=== PATIENT | male | born 1995 | race Caucasian/White ===

== ENCOUNTER 2017-07-24 08:27 | Emergency (ER) | payer OTHER ==
[2017-07-24 08:45] LABS: EOSINOPHIL (%) 1.4 % (0-5); EOSINOPHIL COUNT 0.2 K/uL (0-0.3); HEMATOCRIT 41.9 % (38.0-50.0); IMMATURE GRANULOCYTE (%) 0.7 % (0.0-0.7); IMMATURE GRANULOCYTE COUNT 0.1 K/uL; INSTRUMENT ABS NEUTROPHIL CT 10.7 K/uL; LYMPHOCYTE COUNT 4.1 K/uL (1.0-2.8); MCH 28.6 PG (29.0-34.0); MCHC 34.8 G/DL (30.0-36.0); MEAN PLAT.VOLUME 10.1 uM^3 (9.0-12.4); MONOCYTE (%) 5.8 % (3-12); MONOCYTE COUNT 0.9 K/uL (0-0.8); NEUTROPHIL (%) 66.6 % (45-76); NEUTROPHIL COUNT 10.7 K/uL (1.8-6.4); PLATELET COUNT 268 K/uL (156-360); RBC DIS.WIDTH-CV 12.2 % (11.8-14.6); RBC DIS.WIDTH-SD 36.8 % (39-53); RED BLOOD COUNT 5.11 M/uL (4.00-5.50)
[2017-07-24 08:57] LABS: AMYLASE 76 IU/L (1-118); CHLORIDE 106 mEq/L (99-109); POTASSIUM 3.4 mEq/L (3.7-5.4); SODIUM 141 mEq/L (136-147)
[2017-07-24 08:59] LABS: GLUCOSE 165 mg/dL (70-99)
[2017-07-24 09:01] LABS: ANION GAP 12 MEQ/L (2-14)
[2017-07-24 09:02] LABS: SERUM ETHYL ALCOHOL < 10 mg/dL
[2017-07-24 09:03] LABS: GFR ESTIMATE (CALCULATED) > 59 mL/min/
[2017-07-24 09:04] LABS: UREA NITROGEN (BUN) 8 mg/dL (9-23)
[2017-07-24 09:06] LABS: LIPASE 137 U/L (1.0-51.0)
== END 2017-07-24 11:00 | disposition short-term general hospital (02) ==
LOC: EME 08:27 → TRA 08:27
PROVIDERS: Emergency Medicine
DX: S27.321A Contusion of lung, unilateral, initial encounter (principal); S27.0XXA Traumatic pneumothorax, initial encounter; S36.113A Laceration of liver, unspecified degree, initial encounter; S32.402A Unspecified fracture of left acetabulum, initial encounter for closed fracture; S32.302A Unspecified fracture of left ilium, initial encounter for closed fracture; S32.592A Other specified fracture of left pubis, initial encounter for closed fracture; S06.0X9A Concussion with loss of consciousness of unspecified duration, initial encounter; S27.331A Laceration of lung, unilateral, initial encounter; R18.8 Other ascites; M24.7 Protrusio acetabuli; N32.89 Other specified disorders of bladder; M54.5 Low back pain; V49.40XA Driver injured in collision with unspecified motor vehicles in traffic accident, initial encounter; W22.10XA Striking against or struck by unspecified automobile airbag, initial encounter; Y92.410 Unspecified street and highway as the place of occurrence of the external cause
CPT/HCPCS: 70450; 71010; 71260; 72125; 72129; 72132; 73502; 74000; 74177; 80048; 81003; 82150; 83690; 85025; 86850; 86900; 86901; 99281; 99285; G0480; J2270; J2405; J3010